=== PATIENT | male | born 1940 | race African-American/Black ===

== ENCOUNTER → 2017-01-06 | Outpatient (CLI) | payer MEDICARE ==
[~2017-01-06] MED LIST: ALLOPURINOL 30300 M2 PO; AMLODIPINE BESYL5 MG PO; APAP500 PO; ASPIRIN81 M2 PO; ATENOLOL 50 MG50 M1 PO; ATENOLOL 50MG T50 M1 PO; CARDIZEM CD240 MG PO; COLACE100 MG PO; COLCRYS 0.6 MG0.6 MG PO; DEXAMETHASONE 22 M1 PO; FLOMAX0.4 MG PO; HYDROCHLOROTHIA25 M1 PO; INDOMETHACIN 5050 M1 PO; KEPPRA 500 MG500 M1 PO; KEPPRA 500 MG500 MG PO; KEPPRA750 MG PO; LEVAQUIN 500 M500 MG PO; LIPITOR20 MG PO; NAPROSYN500 MG PO; NORCO 5-325 TA1 EACH PO; NORVASC5 MG PO; PLAVIX 75 MG TA75 MG PO; PRADAXA150 MG PO; PREDNISONE 10 M10 MG PO; PRINIVIL20 MG PO; PRINIVIL40 MG PO; TYLENOL325 MG PO; ZIAGEN 300 MG300 MG; ZOCOR 20 MG TAB20 M1 PO
[2017-01-06 14:40] LABS: CALCIUM 8.9 mg/dL (8.5-10.1); CREATININE 1.4 mg/dL (0.7-1.3); POTASSIUM 3.5 mmol/L (3.5-5.1)
[2017-01-06 14:45] LABS: ALBUMIN 3.6 g/dL (3.4-5.0); TOTAL BILIRUBIN 0.4 mg/dL (<0.1-1.0); TOTAL PROTEIN 7.2 g/dL (6.4-8.2)
== END ==
LOC: MRI 01-02 11:04
PROVIDERS: Radiology Radiation Oncology
DX: D42.0 Neoplasm of uncertain behavior of cerebral meninges (principal); M48.02 Spinal stenosis, cervical region

== ENCOUNTER 2017-06-18 10:56 | Emergency (ER) | payer MEDICARE, OTHER ==
[~2017-06-18] VITALS: Ht 182.9 cm; Wt 92.5 kg
== END 2017-06-19 07:55 | disposition home or self-care (01) ==
LOC: ER 10:56
DX: Z48.01 Encounter for change or removal of surgical wound dressing (principal); I10 Essential (primary) hypertension; I48.91 Unspecified atrial fibrillation

== ENCOUNTER → 2018-01-09 | Outpatient (CLI) | payer MEDICARE, OTHER ==
[2018-01-09 14:19] LABS: ALBUMIN 4.1 g/dL (3.4-5.0); CALCIUM 8.9 mg/dL (8.5-10.1); CREATININE 1.1 mg/dL (0.7-1.3); POTASSIUM 3.5 mmol/L (3.5-5.1); TOTAL BILIRUBIN 0.6 mg/dL (<0.1-1.0); TOTAL PROTEIN 7.4 g/dL (6.4-8.2)
== END ==
LOC: MRI 06:38
PROVIDERS: Radiology Radiation Oncology
DX: D42.0 Neoplasm of uncertain behavior of cerebral meninges (principal); M47.892 Other spondylosis, cervical region; M48.02 Spinal stenosis, cervical region; J32.8 Other chronic sinusitis

== ENCOUNTER → 2019-01-21 | Outpatient (CLI) | payer MEDICARE | LOC: MRI 01-17 13:16 | DX: D42.0 Neoplasm of uncertain behavior of cerebral meninges (principal); C79.31 Secondary malignant neoplasm of brain; M47.812 Spondylosis without myelopathy or radiculopathy, cervical region; M48.02 Spinal stenosis, cervical region; Z98.890 Other specified postprocedural states ==

== ENCOUNTER → 2020-01-21 | Outpatient (CLI) | payer MEDICARE | LOC: MRI 09:19 | DX: D42.0 Neoplasm of uncertain behavior of cerebral meninges (principal) ==

== ENCOUNTER 2020-04-29 01:33 | Emergency (ER) | payer MEDICARE ==
[~2020-04-29] VITALS: Ht 182.9 cm; Wt 92.5 kg
[2020-04-29 02:10] LABS: ABSOLUTE NEUTROPHILS 2.2 thou/uL (1.4-8.2); BASOPHILS 1.4 % (0.0-2.0); EOSINOPHILS 2.5 % (0.0-3.0); HEMOGLOBIN 13.7 gm/dL (14.0-18.0); LYMPHOCYTES 31.8 % (24.0-44.0); MCH 27.9 pg (26.0-34.0); MCHC 32.7 g/dL (28.0-37.0); MCV 85.4 fL (80.0-100.0); MONOCYTES 10.1 % (1.0-8.0); PLATELET COUNT 137 thou/uL (150-400); POLYS 54.2 % (36.0-66.0); RBC 4.92 mil/uL (4.50-6.00); RDW 14.2 % (10.5-14.5)
[2020-04-29 02:32] LABS: CREATININE 1.3 mg/dL (0.7-1.3); POTASSIUM 3.2 mmol/L (3.5-5.1)
[2020-04-29 02:38] LABS: TOTAL BILIRUBIN 0.5 mg/dL (0.2-1.0); TOTAL PROTEIN 7.5 g/dL (6.4-8.2)
[2020-04-29 02:56] LABS: URINE BILIRUBIN NEGATIVE (Negative); URINE BLOOD TRACE (Negative); URINE CLARITY CLEAR; URINE COLOR YELLOW; URINE GLUCOSE-RANDOM* NEGATIVE (Negative); URINE KETONES NEGATIVE (Negative); URINE LEUKOCYTES-REFLEX NEGATIVE (Negative); URINE NITRITE-REFLEX NEGATIVE (Negative); URINE PROTEIN (DIPSTICK) NEGATIVE (Negative); URINE SPECIFIC GRAVITY <= 1.005 (1.005-1.035); URINE UROBILINOGEN 0.2 E.U./dl (0.2-1.0)
[2020-04-29 04:05] VITALS: BP 148/83
== END 2020-04-29 04:05 | disposition home or self-care (01) ==
LOC: ER 01:33
PROVIDERS: Emergency Medicine
DX: R10.12 Left upper quadrant pain (principal); I10 Essential (primary) hypertension; I48.91 Unspecified atrial fibrillation; Z86.2 Personal history of diseases of the blood and blood-forming organs and certain disorders involving the immune mechanism; Z79.899 Other long term (current) drug therapy

== ENCOUNTER → 2021-01-19 | Outpatient (CLI) | payer MEDICARE ==
[2021-01-19 10:39] LABS: CREATININE 1.2 mg/dL (0.7-1.3)
== END ==
LOC: LAB 09:01 → MRI 09:01
PROVIDERS: ATTEND Radiology Radiation Oncology
DX: D42.0 Neoplasm of uncertain behavior of cerebral meninges (principal)

== ENCOUNTER → 2021-01-29 | Outpatient (CLI) | payer MEDICARE | LOC: MRI 01-28 10:53 | PROVIDERS: ATTEND Radiology Radiation Oncology | DX: G93.6 Cerebral edema (principal); D42.0 Neoplasm of uncertain behavior of cerebral meninges; G93.9 Disorder of brain, unspecified ==

== ENCOUNTER 2021-03-15 21:00 | Emergency (ER) | payer MEDICARE ==
[~2021-03-15] VITALS: Ht 180.3 cm; Wt 88.9 kg
[2021-03-15 22:10] LABS: ABSOLUTE NEUTROPHILS 2.5 thou/uL (1.4-8.2); BASOPHILS 1.2 % (0.0-2.0); EOSINOPHILS 1.6 % (0.0-3.0); HEMATOCRIT 40.2 % (42.0-52.0); HEMOGLOBIN 13.3 gm/dL (14.0-18.0); LYMPHOCYTES 24.9 % (24.0-44.0); MCH 28.5 pg (26.0-34.0); MCHC 33.1 g/dL (28.0-37.0); MCV 86.1 fL (80.0-100.0); MONOCYTES 9.9 % (1.0-8.0); PLATELET COUNT 123 thou/uL (150-400); POLYS 62.4 % (36.0-66.0); RBC 4.68 mil/uL (4.50-6.00); RDW 14.9 % (10.5-14.5)
[2021-03-15 22:13] LABS: ANION GAP 6 mmol/L (7-16); BUN 12 mg/dL (7-18); CALCIUM 8.6 mg/dL (8.5-10.1); CHLORIDE 102 mmol/L (98-107); CO2 33 mmol/L (21-32); CREATININE 1.6 mg/dL (0.7-1.3); GLUCOSE 100 mg/dL (74-106); POTASSIUM 3.3 mmol/L (3.5-5.1); SODIUM 141 mmol/L (136-145)
[2021-03-15 22:23] LABS: ALBUMIN 3.7 g/dL (3.4-5.0); SGOT 21 U/L (15-37); SGPT 29 U/L (16-63); TOTAL BILIRUBIN 0.7 mg/dL (0.2-1.0); TOTAL PROTEIN 7.1 g/dL (6.4-8.2); TROPONIN-I <0.06 ng/mL (<0.06)
[2021-03-16] MEDS ORDERED: ELIQUIS5 MG PO (01:17)
[2021-03-16 03:50] VITALS: BP 146/82
--- NOTE | 2021-03-16 07:18 | EKG ---
[place] [address] [facility] [place] [address] ELECTROCARDIOGRAM REPORT Name: EDYTA HOFFMAN Room #: REG GRETEL Franco#: [id number] Admission: 03/15/21 Attend Phys: Discharge: Date of : 40 Report #: [id number] [facility] ED Test Date: 2021-03-15 Test Time: 21:39:24 Pat Name: EDYTA HOFFMAN Department: Room: Gender: M [employer]: TREY : 1940 Requested By: Phil Watson Order Number: [id number] MD: Colton Joseph Measurements Intervals [place] Rate: 56 P: 0 DC: 257 QRS: -29 QRSD: 95 T: 12 QT: 404 QTc: 390 Interpretive Statements Sinus rhythm Prolonged DC interval Left ventricular hypertrophy Compared to ECG 05/04/2014 10:04:03 First degree AV block now present Myocardial infarct finding no longer present Electronically Signed On 03-16-2021 7:18:00 CDT by Colton Joseph [email or web address] <ELECTRONICALLY SIGNED> By: Colton Joseph MD, [facility] 03/16/21 0718 2139 2139 Colton Joseph MD, FACC /EPI
== END 2021-03-16 03:50 | disposition home or self-care (01) ==
LOC: ER 21:00
PROVIDERS: Emergency Medicine
DX: R20.2 Paresthesia of skin (principal); I10 Essential (primary) hypertension; D64.9 Anemia, unspecified; I48.91 Unspecified atrial fibrillation; Z79.899 Other long term (current) drug therapy